=== PATIENT | male | born 1945 | race Asian ===

== ENCOUNTER 2019-02-07 23:17 | Emergency (ER) | payer OTHER ==
[~2019-02-07] VITALS: Ht 175.3 cm; Wt 81.6 kg
[2019-02-08 00:19] LABS: PLATELET COUNT 167 K/uL (142-355)
[2019-02-08 00:40] LABS: POTASSIUM 4.5 mmol/L (3.6-5.2)
[2019-02-08 01:13] VITALS: BP 120/67; TEMP 98.6
[2019-02-08] MEDS ORDERED: FLUOXETINE HYDR20 MG PO (04:49)
[2019-02-08] MEDS ORDERED: IRON (FERROUS S50 MG PO (04:51)
[2019-02-08] MEDS ORDERED: VIMPAT200 M1 PO (04:52)
[2019-02-08] MEDS ORDERED: LACTSYP31 PO (04:53)
[2019-02-08] MEDS ORDERED: XALATAN0.005 % OPTH (04:57)
[2019-02-08] MEDS ORDERED: OLANZAPINE5 M1 PO (04:58)
[2019-02-08] MEDS ORDERED: FAMO20TA4 PO (04:59)
[2019-02-08] MEDS ORDERED: IPRATROPIUM/ INH (05:01)
[2019-02-08] MEDS ORDERED: ALLO100T22 PO (05:01)
[2019-02-08] MEDS ORDERED: LIPITOR80 MG PO (05:03)
[2019-02-08] MEDS ORDERED: APIX1TAB PO (05:03)
[2019-02-08] MEDS ORDERED: CARV6.25 PO (05:04)
[2019-02-08] MEDS ORDERED: GABA100C2 PO (05:11)
[2019-02-08] MEDS ORDERED: MELATONIN3 MG PO (05:12)
[2019-02-08] MEDS ORDERED: ASPERCREME LIDOCA41 EX (05:14)
== END 2019-02-08 01:14 | disposition other institution (70) ==
LOC: ED 23:17
PROVIDERS: Emergency Medicine
DX: F28 Other psychotic disorder not due to a substance or known physiological condition (principal)
CPT/HCPCS: 80053; 85027; 93005; 99285

== ENCOUNTER 2019-02-10 08:34 | Emergency (ER) | payer OTHER ==
[~2019-02-10] VITALS: Ht 170.2 cm; Wt 78.9 kg
[~2019-02-10 08:34] MED LIST: ALLO100T22 PO; APIX1TAB PO; ASPERCREME LIDOCA41 EX; CARV6.25 PO; FAMO20TA4 PO; FLUOXETINE HYDR20 MG PO; GABA100C2 PO; IPRATROPIUM/ INH; IRON (FERROUS S50 MG PO; LACTSYP31 PO; LIPITOR80 MG PO; MELATONIN3 MG PO; OLANZAPINE5 M1 PO; VIMPAT200 M1 PO; XALATAN0.005 % OPTH
[2019-02-10 09:56] LABS: PLATELET COUNT 170 K/uL (142-355)
[2019-02-10 10:19] LABS: SODIUM 140 mmol/L (136-145)
[2019-02-10 11:05] VITALS: BP 206/102; TEMP 98.2
== END 2019-02-10 11:18 | disposition other institution (70) ==
LOC: ED 08:34
PROVIDERS: Family Medicine
DX: R06.02 Shortness of breath (principal); T18.120A Food in esophagus causing compression of trachea, initial encounter; X58.XXXA Exposure to other specified factors, initial encounter; Y93.89 Activity, other specified; Y92.230 Patient room in hospital as the place of occurrence of the external cause; Y99.8 Other external cause status
CPT/HCPCS: 80053; 82150; 82550; 82553; 85027; 93005; 99283; 99284